=== PATIENT | female | born 1985 | race Caucasian/White ===

== ENCOUNTER 2019-01-07 17:07 | Emergency (ER) | payer OTHER ==
[~2019-01-07] VITALS: Ht 160 cm; Wt 68.2 kg
[2019-01-07] MEDS ORDERED: morphine 4 MG/ML inj SYRINge IV ONE (17:45)
[2019-01-07] MEDS ORDERED: ondansetron/PF 4mg/2ml inj IV ONE (17:45)
[2019-01-07] MEDS ORDERED: normal saline 1000ml 1,000 ML IV ONE (18:05)
[2019-01-07] MEDS ORDERED: HYDROmorphone 1 mg/ml syringe IV ONE (18:05)
[2019-01-07 18:08] LABS: BASOPHILS # (AUTO) 0.1 X10'3 (0-0.2); BASOPHILS % (AUTO) 0.7 % (0-1); EOSINOPHILS # (AUTO) 0.1 X10'3 (0-0.9); EOSINOPHILS % (AUTO) 0.7 % (0-6); HEMATOCRIT 37.5 % (35.0-45.0); HEMOGLOBIN 12.8 g/dl (12.0-16.0); LYMPHOCYTES # (AUTO) 2.3 X10'3 (1.1-4.8); LYMPHOCYTES % (AUTO) 27.1 % (21-51); MEAN CORPUSCULAR HEMOGLOBIN 30.2 PG (27.0-31.0); MEAN CORPUSCULAR HGB CONC 34.2 g/dL (33.0-36.5); MEAN CORPUSCULAR VOLUME 88.1 FL (78-98); MEAN PLATELET VOLUME 7.6 FL (7.4-10.4); MONOCYTES # (AUTO) 0.6 X10'3 (0-0.9); MONOCYTES % (AUTO) 7.2 % (2-12); NEUTROPHILS # (AUTO) 5.4 X10'3 (1.8-7.7); NEUTROPHILS % (AUTO) 64.3 % (42-75); PLATELET COUNT 323 X10'3 (140-440); RED BLOOD COUNT 4.25 X10'6 (4.20-5.60); RED CELL DISTRIBUTION WIDTH 12.3 % (11.5-14.5); WHITE BLOOD COUNT 8.4 X10'3 (4.5-11.0)
[2019-01-07 18:09] LABS: ALANINE AMINOTRANSFERASE 18 U/L (12-78); ALBUMIN 4.4 G/DL (3.4-5.0); ALKALINE PHOSPHATASE 58 IU/L (46-116); ASPARTATE AMINO TRANSFERASE 16 U/L (10-37); BLOOD UREA NITROGEN 14 MG/DL (7-18); BUN/CREATININE RATIO 17.5 (6.6-38.0); CALCIUM 9.3 MG/DL (8.5-10.1); GLUCOSE 90 MG/DL (70-104); LIPASE 83 U/L (73-393); eGFR 83 ML/MIN
[2019-01-07 18:20] LABS: PROTHROMBIN TIME 10.5 SECONDS (9.0-12.0)
[2019-01-07 18:25] LABS: URINE HCG NEGATIVE (NEG)
[2019-01-07 18:27] LABS: ANION GAP 8 (8-16); CHLORIDE 102 MMOL/L (99-107); POTASSIUM 4.1 MMOL/L (3.5-5.1); SODIUM 138 MMOL/L (135-145); TOTAL CARBON DIOXIDE 28 MMOL/L (24-32)
[2019-01-07 18:28] LABS: ALBUMIN/GLOBULIN RATIO 1.2 (1.1-1.5); BILIRUBIN,TOTAL 0.7 MG/DL (0.1-1.0); TOTAL PROTEIN 8.1 G/DL (6.4-8.2)
[2019-01-07 18:32] LABS: CLARITY,URINE SLIGHTLY CLOUDY (Clear); COLOR,URINE YELLOW (Yellow); GLUCOSE, URINE NEGATIVE (Neg); KETONES,URINE NEGATIVE (Neg); LEUKOCYTE ESTERASE ,URINE NEGATIVE (Neg); NITRITES, URINE NEGATIVE (Neg); OCCULT BLOOD,URINE NEGATIVE (Neg); PH,URINE 6.5 (4.8-8.0); PROTEIN,URINE NEGATIVE (Neg); UROBILINOGEN,URINE 0.2 E.U/dL (0.2-1.0)
[2019-01-07 18:39] LABS: UA COLLECTION TYPE CLN CATCH MIDSTREAM
[2019-01-07 18:40] LABS: BACTERIA,URINE NONE SEEN /HPF (Neg); MUCUS STRANDS FEW /LPF (Neg); RBC,URINE 0-2 /HPF (0-2); SQUAMOUS EPITHELIAL CELL,UR MANY /LPF (FEW); WBC,URINE 0-4 /HPF (0-4)
[2019-01-07 18:42] LABS: AMORPHOUS URATES 2+
[2019-01-07] MEDS ORDERED: MAGN296S50 PO (19:32)
[2019-01-07] MEDS ORDERED: POLY119P2 PO (19:32)
[2019-01-07] MEDS ORDERED: BISA-155 PO (19:32)
[2019-01-07 19:44] LABS: URINE AMPHETAMINE SCREEN NEGATIVE (Neg); URINE BARBITUATE SCREEN NEGATIVE (Neg); URINE BENZODIAZEPINES SCREEN NEGATIVE (Neg); URINE CANNABINOID SCREEN POSITIVE (Neg); URINE COCAINE SCREEN NEGATIVE (Neg); URINE METHADONE SCREEN NEGATIVE (Neg); URINE OPIATE SCREEN POSITIVE (Neg); URINE PHENCYCLIDINE SCREEN NEGATIVE (Neg)
[2019-01-07 20:25] VITALS: BP 106/68
== END 2019-01-07 20:27 | disposition home or self-care (01) ==
LOC: ER 17:07
DX: K59.00 Constipation, unspecified (principal); Z79.899 Other long term (current) drug therapy; Z88.0 Allergy status to penicillin; Z88.2 Allergy status to sulfonamides; Z88.1 Allergy status to other antibiotic agents
CPT/HCPCS: 36415; 74176; 80053; 80305; 81001; 81025; 83690; 85025; 85610; 96374; 96375; 99284; J1170; J2270; J2405; J7030

== ENCOUNTER 2019-03-09 07:46 | Day surgery (SDC) | payer MEDICAID ==
[~2019-03-09] VITALS: Ht 160 cm; Wt 72.7 kg
[~2019-03-09 07:46] MED LIST: BISA-155 PO; MAGN296S50 PO; PANT-47 PO; POLY119P2 PO
[2019-03-09 07:55] VITALS: BP 128/76
[2019-03-09] MEDS ORDERED: DICY10CA88 PO (08:06)
[2019-03-09] MEDS ORDERED: ALBU8.5H8 IH (08:07)
[2019-03-09] MEDS ORDERED: LIDOcaine Viscous 15ml cup ONE (08:09)
[2019-03-09] MEDS ORDERED: fentaNYL/PF 50MCG/1 ML 2ML syringe ONE ×3 (08:09→10:06)
[2019-03-09] MEDS ORDERED: MIDAZolam 5mg/5ml vial ONE (08:09)
[2019-03-09] MEDS ORDERED: ACET-75 PO (08:10)
[2019-03-09] MEDS ORDERED: PANT-47 PO (08:14)
[2019-03-09 10:32] VITALS: BP 140/67
[2019-03-09 10:42] VITALS: BP 96/54
[2019-03-09 10:52] VITALS: BP 111/62
[2019-03-09 11:02] VITALS: BP 99/62
== END 2019-03-09 11:20 | disposition home or self-care (01) ==
LOC: GI LAB 07:46
PROVIDERS: ATTEND Internal Medicine Gastroenterology
DX: D12.8 Benign neoplasm of rectum (principal); K29.50 Unspecified chronic gastritis without bleeding
CPT/HCPCS: 43239; 45380; 45385; 99152; 99153; J2250; J3010; J7030; A4620

== ENCOUNTER 2020-07-28 08:17 | Day surgery (SDC) | payer MEDICAID ==
[2020-07-28] VITALS (7 sets, daily range): BP systolic 102–113; BP diastolic 56–69
[~2020-07-28] VITALS: Ht 165.1 cm; Wt 82.9 kg
[~2020-07-28 08:17] MED LIST changes: +ACET-75 PO; +ALBU8.5H8 IH; -BISA-155 PO; +DICY10CA88 PO; -MAGN296S50 PO; -POLY119P2 PO
[2020-07-28] MEDS ORDERED: LORA10TA7 PO (08:50)
[2020-07-28] MEDS ORDERED: TIZA2TAB7 PO (08:50)
[2020-07-28] MEDS ORDERED: TRAM50TA2 PO (08:50)
[2020-07-28] MEDS ORDERED: IBUP-1986 PO (08:50)
[2020-07-28] MEDS ORDERED: ONDA-103 PO (08:50)
[2020-07-28] MEDS ORDERED: LORazepam 1 MG tablet PO ONE (09:10)
[2020-07-28 13:35] LABS: GLUCOSE,CSF 54 MG/DL (40-75); TOTAL PROTEIN,CSF 22 MG/DL (15-45)
[2020-07-28 14:03] LABS: APPEARANCE,CSF CLEAR; CSF SUPERNATANT COLOR COLORLESS; CSF VOLUME 13 ML; TUBE# COUNTED 3
[2020-07-28 14:04] LABS: CSF RBC 0 /CU MM (0); CSF WBC CT 1 /CU MM (0-5)
== END 2020-07-28 12:40 | disposition home or self-care (01) ==
LOC: SSTAY O 08:17
DX: H47.11 Papilledema associated with increased intracranial pressure (principal); Z79.899 Other long term (current) drug therapy; Z88.0 Allergy status to penicillin; Z88.2 Allergy status to sulfonamides; Z88.1 Allergy status to other antibiotic agents
CPT/HCPCS: 36415; 62328; 82945; 83916; 84157; 87205; 89051